=== PATIENT | female | born 1990 | race Caucasian/White ===

== ENCOUNTER 2018-11-21 10:26 | Day surgery (SDC) | payer BC ==
--- NOTE | 2018-11-12 09:52 | GHP ---
[f rep st] PREOP HISTORY AND PHYSICAL DATE OF ADMISSION: 11/21/2018 CHIEF COMPLAINT: Breast hypertrophy. HISTORY OF PRESENTING COMPLAINT: The patient is a 28-year-old woman who has been bothered by neck an d back pain since adolescence. Her excessive breast size has lead to these problems, [facility] she finds it difficult to run. PAST MEDICAL HISTORY: Unremarkable. She has a history of asthma, which is under good control. SURGICAL HISTORY: She has had tonsillectomy in 2005, hernia repairs in 1993, and appendectomy in . MEDICATIONS: Breo Ellipta steroid inhaler once daily. ALLERGIES: None known. EXAMINATION: GENERAL: She is a healthy 28-year-old female. CARDIOVASCULAR: Heart sounds are ann-marie l. RESPIRATORY: Chest is clear with good air entry. Breasts: Reveals macromastia. IMPRESSION: Fit for procedure. PLAN: Bilateral breast reduction. /[id number]/MODL
[2018-11-21] MEDS ORDERED: ceFAZolin 2 GM/DEXTROSE 100 ML IV ONE (10:46)
[2018-11-21] MEDS ORDERED: LR 1,000 ML IV ONE (10:47)
[2018-11-21] MEDS ORDERED: LIDO/EPI 1% **for epidural** 30 ML SDV ONE (11:05)
[2018-11-21] MEDS ORDERED: MIDAZOLAM 2 MG/2 ML VIAL IVP ONE (11:54)
--- NOTE | 2018-11-21 11:55 | PDANEPAE ---
ANE History of Present Illness breast hypertrophy with back & neck pain ANE Past Medical History - Cardiovascular History Hx Hypertension: No Hx Arrhythmias: No Hx Chest Pain: No Hx Coronary Artery / Peripheral Vascular Disease: No Hx CHF / Valvular Disease: No Hx Palpitations: No - Pulmonary History Hx COPD: No Hx Asthma/Reactive Airway Disease: Yes Hx Recent Upper Respiratory Infection: No Hx Oxygen in Use at Home: No Hx Sleep Apnea: No Sleep Apnea Screening Result - Last Documented: Negative Pulmonary History Comment: ALLERGIES TRIGGER ASTHMA - Neurologic History Hx Cerebrovascular Accident: No Hx Seizures: No Hx Dementia: No - Endocrine History Hx Diabetes: No Hypothyroid: No Hyperthyroid: No Obesity: no - Renal History Hx Renal Disorders: No - Liver History Hx Hepatic Disorders: No - Neurological & Psychiatric Hx Hx Neurological and Psychiatric Disorders: No - Cancer History Hx Cancer: No - Congenital Disorder History Hx Congenital Disorders: No - GI History GERD: no Hx Gastrointestinal Disorders: No - Other Health History Other Health History: NONE - Chronic Pain History Chronic Pain: No - Surgical History Prior Surgeries: APPENDECTOMY 2012. DOUBLE HERNIA 1994. TONSILECTOMY 2005 ANE Review of Systems Review of systems is: negative Review of Systems: - Exercise capacity Exercise capacity: >=4 METS METS (RN): 5 METS ANE Patient History - Allergies Allergies/Adverse Reactions: No Known Allergies Allergy (Verified 11/13/18 15:59) - Home Medications Home medications: home medication list seen and reviewed Home Medications: Breo Ellipta 100-25 Mcg INH 11/13/18 [Last Taken 11/19/18] - NPO status NPO Status: no food or drink >8 hours NPO Since - Liquids (Date): 11/21/18 NPO Since - Liquids (Time): 06:00 NPO Since - Solids (Date): 11/20/18 NPO Since - Solids (Time): 18:00 - Anes Hx Anes Hx: no prior problems - Smoking Hx Smoking Status: Never smoked - Family Anes Hx Family Hx Anesthesia Complications: NONE ANE Labs/Vital Signs - Vital Signs Vital Signs: reviewed preoperatively; see RN documention for details Blood Pressure: 126/87 Heart Rate: 85 Respiratory Rate: 10 O2 Sat (%): 97 Height: 162.56 cm Weight: 61.235 kg ANE Physical Exam - Airway Neck exam: FROM Mallampati Score: Class 1 Mouth exam: normal dental/mouth exam - Pulmonary Pulmonary: no respiratory distress, clear to auscultation - Cardiovascular Cardiovascular: regular rate and rhythym - ASA Status ASA Status: II ANE Anesthesia Plan Anesthesia Plan: GA w LMA
[2018-11-21] MEDS ORDERED: PROPOFOL 200 MG/20 ML VIAL ONE (12:00)
[2018-11-21] MEDS ORDERED: PROPOFOL/EMULSION 500 MG/50 ML BOTTLE IV ONE ×2 (12:00→14:09)
[2018-11-21] MEDS ORDERED: fentaNYL 100 MCG/2 ML INJ ONE ×2 (12:00→16:21)
[2018-11-21] MEDS ORDERED: ROCURONIUM 100 MG/10 ML VIAL ONE (12:03)
--- NOTE | 2018-11-21 13:13 | PDHPUP ---
History & Physical Update H&P update statement: This history and physical update is based on an assessment of the patient which was completed after admission or registration (within 24 hours), but prior to the surgery/procedure. H&P update: H&P reviewed & patient examined, no change in patient's condition since H&P completed
[2018-11-21] MEDS ORDERED: DEXAMETHASONE 4 MG/ML VIAL ONE ×2 (13:57)
[2018-11-21] MEDS ORDERED: ONDANSETRON 4 MG/2 ML VIAL ONE (13:57)
[2018-11-21] MEDS ORDERED: ONDANSETRON 4 MG/2 ML VIAL IVP PRN (15:16)
[2018-11-21] MEDS ORDERED: METOCLOPRAMIDE 10 MG/2 ML VIAL IVP PRN (15:16)
[2018-11-21] MEDS ORDERED: PHENYLEPHRINE HCL 100 MCG/ML SYR IVP PRN (15:16)
[2018-11-21] MEDS ORDERED: LABETALOL HCL 5 MG/ML 20 ML MDV IVP PRN (15:16)
[2018-11-21] MEDS ORDERED: ACETAMINOPHEN 500 MG TAB PO PRN (15:16)
[2018-11-21] MEDS ORDERED: NALOXONE HCL 0.4 MG/ML INJ IVP PRN (15:16)
[2018-11-21] MEDS ORDERED: PROMETHAZINE HCL 25 MG/ML INJ IVP PRN (15:16)
[2018-11-21] MEDS ORDERED: DEXAMETHASONE 4 MG/ML VIAL IVP PRN (15:16)
[2018-11-21] MEDS ORDERED: fentaNYL 100 MCG/2 ML INJ IVP PRN (15:16)
[2018-11-21] MEDS ORDERED: oxyCODONE IR 5 MG TAB PO PRN (15:16)
[2018-11-21] MEDS ORDERED: LR 500 ML IV PRN (15:16)
[2018-11-21] MEDS ORDERED: HYDROmorphONE/DILAUDID 1 MG/ML INJ IVP PRN (15:16)
[2018-11-21] MEDS ORDERED: ALBUTEROL 3 ML DEYVIAL IH PRN (15:16)
[2018-11-21] MEDS ORDERED: MEPERIDINE 25 MG/0.5 ML AMP IVP PRN (15:16)
--- NOTE | 2018-11-21 15:30 | POSTOPPROG ---
Post Op Note Date of Operation: 11/21/18 Surgeon: Sherif Dave Anesthesia: LMA Pre-op Diagnosis: BREAST hYPERTROPHY Post-op Diagnosis: SAME Procedure: BILATERAL BREAST REDUCTION Inf/Abcess present in the surg proc area at time of surgery?: No EBL: 50-100 Clean Closure Performed: Yes Drains: Rg Napoles
--- NOTE | 2018-11-21 16:31 | POSTANESTH ---
Post Anesthetic Evaluation Cardiovascular Status: Normal, Stable Respiratory Status: Normal, Stable Level of Consciousness/Mental Status: Can Participate in Eval Pain Control: Adequate, Prn Tx Ordered Nausea/Vomiting Control: Adequate, Prn Tx Ordered Complications Possibly Related to Anesthesia: None Noted
[2018-11-21] MEDS ORDERED: oxyCODONE IR 5 MG TAB ONE (17:46)
[2018-11-21 19:03] VITALS: BP 121/84
--- NOTE | 2018-11-21 19:14 | GOP ---
[f rep st] OPERATIVE REPORT DATE OF OPERATION: 11/21/2018 SURGEON: Sherif Dave MD PREOPERATIVE DIAGNOSIS: Breast hypertrophy. POSTOPERATIVE DIAGNOSIS: Breast hypertrophy. PROCEDURE PERFORMED: Bilateral breast reduction. FINDINGS: ESTIMATED BLOOD LOSS: 75 mL total. DESCRIPTION OF PROCEDURE: With patient lying supine under general anesthesia, anterior chest region was prepped and draped in the usual fashion. Incisions were made according to preoperative markings for modified vertical pattern breast reduction with superior/medial pedicle technique. Pedicles were de-epithelialized and freed up from the surrounding tissue. Superior and lateral breast flaps were developed. Excess tissue was excised from the pedicles, and this resulted in removal along with skin and other tissue of a total of 362 g of tissue from each side. Bleeders were controlled with electr ocautery. Rg-Napoles drains were placed bilaterally, and closure was carried out of the entire in cisions with 3-0 Stratafix running subcuticular sutures. Dressings of Steri-Strips and gauze were ap plied to the incisions, and dressings of Xeroform and gauze to the drain sites. The procedure was to lerated well. /[id number]/MODL
== END 2018-11-21 19:05 | disposition home or self-care (01) ==
LOC: FSGY 10:26
PROVIDERS: ATTEND Plastic Surgery
PROC: 0HBV0ZZ Excision of Bilateral Breast, Open Approach (ICD-10-PCS; principal; 2018-11-21 12:15)
DX: N62 Hypertrophy of breast (principal); M54.2 Cervicalgia; M54.6 Pain in thoracic spine; J45.909 Unspecified asthma, uncomplicated
CPT/HCPCS: J0690; J1100; J2250; J2405; J2704; J3010